=== PATIENT | female | born 1995 | race Caucasian/White ===

== ENCOUNTER 2021-01-25 14:33 | Emergency (ER) | payer OTHER ==
[~2021-01-25 14:33] MED LIST: ZOFRAN ODT 4 MG4 MG PO
[2021-01-25 15:40] LABS: HEMOGLOBIN 13.4 gm/dl (12.3-15.3); RED BLOOD COUNT 4.4 M/UL (4.00-5.10); WHITE BLOOD COUNT 7.8 K/UL (4.5-11.0)
[2021-01-25 16:05] LABS: BUN/CREATININE RATIO 10 (0-10)
[2021-01-25] MEDS ORDERED: CEPHALEXIN500 MG PO (18:37)
== END 2021-01-25 15:49 | disposition home or self-care (01) ==
LOC: ER1 14:33
PROVIDERS: Physician Assistant
DX: O26.851 Spotting complicating pregnancy, first trimester (principal); O20.9 Hemorrhage in early pregnancy, unspecified; Z3A.01 Less than 8 weeks gestation of pregnancy
CPT/HCPCS: 76817; 80053; 81001; 84702; 85025; 86900; 86901; 87086; 99284

== ENCOUNTER → 2021-03-17 | Day surgery (SDC) | payer OTHER ==
[~2021-03-17] MED LIST changes: +CEPHALEXIN500 MG PO; +HYDROCODON-ACE1 EAC2 PO; +NAPROSYN EC 50500 MG PO; +ZOFRAN 4 MG TAB4 MG PO
[2021-03-17 10:19] LABS: HEMOGLOBIN 11.5 gm/dl (12.3-15.3); RED BLOOD COUNT 3.76 M/UL (4.00-5.10); WHITE BLOOD COUNT 10.1 K/UL (4.5-11.0)
== END | disposition home or self-care (01) ==
LOC: OR 09:40
PROVIDERS: Obstetrics & Gynecology
DX: O03.4 Incomplete spontaneous abortion without complication (principal); Z20.822 Contact with and (suspected) exposure to COVID-19
CPT/HCPCS: 81001; 85025; J1100; J1170; J2250; J2405; J2550; J2704; J2795; J3010; J7120; U0002

== ENCOUNTER 2022-01-27 16:25 | Inpatient (IN) | payer OTHER ==
[~2022-01-27] VITALS: Ht 165.1 cm; Wt 111.6 kg
[2022-01-27 19:55] LABS: HEMOGLOBIN 10.9 gm/dl (12.3-15.3); RED BLOOD COUNT 3.53 M/UL (4.00-5.10); WHITE BLOOD COUNT 10.3 K/UL (4.5-11.0)
[2022-01-28 06:46] LABS: HEMOGLOBIN 10.1 gm/dl (12.3-15.3)
[2022-01-28] MEDS ORDERED: COLACE 100MG C100 MG PO (15:15)
[2022-01-28] MEDS ORDERED: HYDROCODON-ACE1 EAC6 PO (15:15)
[2022-01-28] MEDS ORDERED: IBUPROFEN600 MG PO (15:15)
== END 2022-01-29 13:03 | disposition home or self-care (01) | DRG 788 ==
LOC: GENOP 16:25 → OB 18:24
PROVIDERS: Obstetrics & Gynecology; ADMIT Obstetrics & Gynecology
PROC: 3E0234Z Introduction of Serum, Toxoid and Vaccine into Muscle, Percutaneous Approach (ICD-10-PCS; 2022-01-28)
PROC: 10D00Z1 Extraction of Products of Conception, Low, Open Approach (ICD-10-PCS; principal; 2022-01-28 00:16)
DX: O76 Abnormality in fetal heart rate and rhythm complicating labor and delivery (principal); O99.214 Obesity complicating childbirth; O32.1XX0 Maternal care for breech presentation, not applicable or unspecified; O13.4 Gestational [pregnancy-induced] hypertension without significant proteinuria, complicating childbirth; Z37.0 Single live birth; Z90.49 Acquired absence of other specified parts of digestive tract; Z98.890 Other specified postprocedural states; Z81.8 Family history of other mental and behavioral disorders; Z82.61 Family history of arthritis; Z3A.35 35 weeks gestation of pregnancy; Z23 Encounter for immunization; O34.03 Maternal care for unspecified congenital malformation of uterus, third trimester; Q51.3 Bicornate uterus; O77.0 Labor and delivery complicated by meconium in amniotic fluid
CPT/HCPCS: 81001; 82800; 85014; 85018; 85025; 90471; 90715; C9113; J0690; J0702; J1170; J1885; J2274; J2370; J2405; J2590; J3010